=== PATIENT | female | born 1995 | race Caucasian/White ===

== ENCOUNTER 2022-11-27 11:10 | Emergency (ER) | payer OTHER ==
[~2022-11-27] VITALS: Ht 165.1 cm; Wt 59.4 kg
[2022-11-27 12:14] LABS: HEMATOCRIT 33.1 % (36.0-45.00); MEAN CELL VOLUME 89.7 fL (80.00-100.00); PLATELET COUNT 245 K/uL (150-450); RED BLOOD COUNT 3.69 M/uL (4.00-6.00); RED CELL DISTRIBUTION WIDTH 14.1 % (11.5-14.5)
[2022-11-27 12:36] LABS: HEMOGLOBIN 10.9 g/dL (12.0-15.00); MEAN CORPUSCULAR HEMOGLOBIN 29.5 pg (27.00-32.0)
[2022-11-27 12:50] LABS: PH,URINE 6.5 (5.0-8.0); URINE APPEARANCE Cloudy; URINE BILIRRUBIN Negative (NEGATIVE); URINE BLOOD Moderate; URINE COLOR Yellow; URINE GLUCOSE Negative (NEGATIVE); URINE LEUKOCYTE Large; URINE NITRATE Negative; URINE PROTEIN Trace (NEGATIVE)
[2022-11-27 12:52] LABS: URINE BACTERIA 6320.1 uL (0.0-1933); URINE EPITHELIAL CELLS 115.6 uL (0.0-38.8); URINE RBC 128.3 uL (0.0-20.8); URINE WBC 463.7 uL (0.0-23.2)
[2022-11-27 13:39] LABS: URINE YEAST FEW /hpf
== END 2022-11-27 15:04 | disposition home or self-care (01) ==
LOC: ER 11:10
PROVIDERS: Emergency Medicine
DX: O23.42 Unspecified infection of urinary tract in pregnancy, second trimester (principal); N39.0 Urinary tract infection, site not specified; Z3A.19 19 weeks gestation of pregnancy

== ENCOUNTER 2022-12-14 12:58 | Outpatient (CLI) | payer OTHER | END 2022-12-14 13:48 | disposition home or self-care (01) | LOC: PRENATAL 12:58 | PROVIDERS: ATTEND Obstetrics & Gynecology Maternal & Fetal Medicine | DX: O35.3XX0 Maternal care for (suspected) damage to fetus from viral disease in mother, not applicable or unspecified (principal); O44.00 Complete placenta previa NOS or without hemorrhage, unspecified trimester; Z3A.21 21 weeks gestation of pregnancy ==

== ENCOUNTER 2023-03-02 18:10 | Inpatient (IN) | payer OTHER ==
[~2023-03-02] VITALS: Ht 165.1 cm; Wt 66.7 kg
[2023-03-02 19:27] LABS: HEMATOCRIT 30.8 % (36.0-45.00); HEMOGLOBIN 10.4 g/dL (12.0-15.00); MEAN CELL VOLUME 90.5 fL (80.00-100.00); MEAN CORPUSCULAR HEMOGLOBIN 30.7 pg (27.00-32.0); MEAN CORPUSCULAR HGB CONC 33.9 g/dl (32.0-36.0); PLATELET COUNT 277 K/uL (150-450); RED CELL DISTRIBUTION WIDTH 13.9 % (11.5-14.5)
[2023-03-02 19:32] LABS: URINE APPEARANCE Clear; URINE BILIRRUBIN Negative (NEGATIVE); URINE BLOOD Moderate; URINE COLOR Yellow; URINE GLUCOSE Negative (NEGATIVE); URINE LEUKOCYTE Negative; URINE NITRATE Negative; URINE PROTEIN 30 (NEGATIVE)
[2023-03-02 19:35] LABS: URINE BACTERIA 12.5 uL (0.0-1933); URINE RBC 184.2 uL (0.0-20.8); URINE WBC 6.4 uL (0.0-23.2)
[2023-03-02] MEDS ORDERED: PROAIR RESPICL90 MCG (19:50)
[2023-03-02] MEDS ORDERED: PRENATAL CAPLE1 EAC1 PO (19:50)
[2023-03-02] MEDS ORDERED: CLARITIN5 MG PO (19:50)
[2023-03-02 19:52] LABS: CALCIUM 9.1 mg/dL (8.5-10.1); CREATININE SERUM 0.42 mg/dL (0.55-1.02); GFR 177.15; POTASSIUM 4.26 mEq/L (3.5-5.1)
[2023-03-02 20:18] LABS: URINE YEAST FEW /hpf
== END 2023-03-06 13:35 | disposition home or self-care (01) | DRG 833 ==
LOC: OB/GYN 18:10 → LDR 18:10 → OB/GYN 03-03 21:46
PROVIDERS: ADMIT Obstetrics & Gynecology; ATTEND Obstetrics & Gynecology
PROC: 4A1HXCZ Monitoring of Products of Conception, Cardiac Rate, External Approach (ICD-10-PCS; principal; 2023-03-02)
PROC: BY4FZZZ Ultrasonography of Third Trimester, Single Fetus (ICD-10-PCS; 2023-03-03)
PROC: BU4CZZZ Ultrasonography of Uterus and Ovaries (ICD-10-PCS; 2023-03-03)
DX: O60.03 Preterm labor without delivery, third trimester (principal); O26.843 Uterine size-date discrepancy, third trimester; O36.8130 Decreased fetal movements, third trimester, not applicable or unspecified; Z3A.32 32 weeks gestation of pregnancy; Z20.822 Contact with and (suspected) exposure to COVID-19

== ENCOUNTER 2023-04-15 14:47 | Inpatient (IN) | payer OTHER ==
[~2023-04-15] VITALS: Ht 165.1 cm; Wt 68.9 kg
[~2023-04-15 14:47] MED LIST: CLARITIN5 MG PO; PRENATAL CAPLE1 EAC1 PO; PROAIR RESPICL90 MCG
[2023-04-15] MEDS ORDERED: AMPICILLIN SODIUM 2,000 MG VIAL ONE (15:12)
[2023-04-15] MEDS ORDERED: AMPICILLIN SODIUM 2,000 MG VIAL IV ONE (16:30)
[2023-04-15 16:34] LABS: PH,URINE 6.5 (5.0-8.0); URINE APPEARANCE Cloudy; URINE BILIRRUBIN Negative (NEGATIVE); URINE BLOOD Large; URINE COLOR Dark Yellow; URINE GLUCOSE Negative (NEGATIVE); URINE LEUKOCYTE Moderate; URINE NITRATE Negative
[2023-04-15 16:35] LABS: HEMATOCRIT 30.4 % (36.0-45.00); HEMOGLOBIN 10.3 g/dL (12.0-15.00); MEAN CELL VOLUME 86.8 fL (80.00-100.00); MEAN CORPUSCULAR HEMOGLOBIN 29.4 pg (27.00-32.0); MEAN CORPUSCULAR HGB CONC 33.8 g/dl (32.0-36.0); PLATELET COUNT 251 K/uL (150-450); RED CELL DISTRIBUTION WIDTH 14.5 % (11.5-14.5)
[2023-04-15 16:38] LABS: URINE BACTERIA 6505.2 uL (0.0-1933); URINE EPITHELIAL CELLS 122.5 uL (0.0-38.8); URINE RBC 381.2 uL (0.0-20.8)
[2023-04-15] MEDS ORDERED: CHLORHEXIDINE GLUCONATE 120 ML BOTTLE TOP ONE (16:38)
[2023-04-15] MEDS ORDERED: ERYTHROMYCIN BASE 1 GM TUBE OP ONE (16:38)
[2023-04-15] MEDS ORDERED: OXYTOCIN 20 UNITS/1000ML RL PIGGYBAG IV ONE (16:38)
[2023-04-15] MEDS ORDERED: OXYTOCIN 10 UNITS/ML VIAL ONE (16:39)
[2023-04-15 16:55] LABS: INR 1.01; PARTIAL THROMBOPLASTIN TIME 26.5 SECONDS (22.0-34.0); PROTHROMBIN TIME 10.6 SECONDS (9.0-11.5)
[2023-04-15 16:59] LABS: ALBUMIN 2.9 gm/dL (3.4-5.0); BILIRUBIN TOTAL 0.4 mg/dL (0.3-1.2); CREATININE SERUM 0.64 mg/dL (0.55-1.02); GFR 108.96; GLOBULINA 3.8 G/DL (2.4-3.5); POTASSIUM 3.73 mEq/L (3.5-5.1); TOTAL PROTEIN 6.7 gm/dL (6.4-8.2)
[2023-04-15] MEDS ORDERED: OXYTOCIN 500 ML IV ONE (17:00)
[2023-04-15 17:16] LABS: URINE PROTEIN 300 (NEGATIVE)
[2023-04-15 17:17] LABS: URINE MUCUS MODERATE
[2023-04-15] MEDS ORDERED: AMPICILLIN SODIUM 1,000 MG VIAL IV SCH (20:00)
[2023-04-15] MEDS ORDERED: DOCUSATE SODIUM 100MG CAP PO SCH (21:41)
[2023-04-15] MEDS ORDERED: LIDOCAINE HCL 1% 200MG/20ML VIAL IJ SCH (21:45)
[2023-04-15] MEDS ORDERED: CHLORHEXIDINE GLUCONATE 120 ML BOTTLE TOP SCH (21:45)
[2023-04-15] MEDS ORDERED: IBUprofen 400 MG TABLET PO PRN (21:45)
[2023-04-15] MEDS ORDERED: OXYTOCIN 10 UNITS/ML VIAL IM STA (21:45)
[2023-04-15] MEDS ORDERED: ERYTHROMYCIN BASE 1 GM TUBE OP SCH (21:45)
[2023-04-15 22:33] LABS: ABG PH 7.392 (7.35-7.45); ABG PO2 45.6 mmHg (80-100); BASE EXCESS -0.5 mmol/l; BICARBONATE 24.4 mmol/l (23-25); SaO2 80.8 %; Tco2 25.6 mmol/l
[2023-04-15 22:34] LABS: o2 21 %
[2023-04-15] MEDS ORDERED: OXYTOCIN 1,000 ML IV SCH (23:00)
[2023-04-16 02:44] LABS: HEMATOCRIT 30.5 % (36.0-45.00); HEMOGLOBIN 10.4 g/dL (12.0-15.00); MEAN CELL VOLUME 87.2 fL (80.00-100.00); MEAN CORPUSCULAR HEMOGLOBIN 29.7 pg (27.00-32.0); PLATELET COUNT 239 K/uL (150-450); RED BLOOD COUNT 3.49 M/uL (4.00-6.00); RED CELL DISTRIBUTION WIDTH 14.2 % (11.5-14.5)
== END 2023-04-17 14:39 | disposition home or self-care (01) | DRG 807 ==
LOC: LDR 14:47 → OB/GYN 21:23
PROVIDERS: ADMIT Obstetrics & Gynecology; ATTEND Obstetrics & Gynecology
PROC: 10E0XZZ Delivery of Products of Conception, External Approach (ICD-10-PCS; principal; 2023-04-15)
PROC: 0KQM0ZZ Repair Perineum Muscle, Open Approach (ICD-10-PCS; 2023-04-15)
PROC: 4A1HXCZ Monitoring of Products of Conception, Cardiac Rate, External Approach (ICD-10-PCS; 2023-04-15)
DX: O70.1 Second degree perineal laceration during delivery (principal); Z37.0 Single live birth; O99.824 Streptococcus B carrier state complicating childbirth; Z3A.38 38 weeks gestation of pregnancy; Z20.822 Contact with and (suspected) exposure to COVID-19